=== PATIENT | male | born 1955 | race Caucasian/White ===

== ENCOUNTER 2020-03-29 09:58 | Emergency (ER) | payer MEDICARE, MEDICAID, SELFPAY ==
--- NOTE | 2020-03-29 10:06 | ED.RECABL ---
HPI - Recheck/Abnormal Lab/Rx General Chief Complaint: Recheck/Abnormal Lab/Rx Stated Complaint: sent by pcp for elevated bp Time Seen by Provider: 03/29/20 10:06 History of Present Illness HPI narrative: Sent in by PCP for evaluation of elevated BP. He reports that he has not been able to get his systolic BP below 200. He has a mild headache, denies any additional physical symptoms. He just restarted his metoprolol yesterday. 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 Related Data Home Medications Medication Instructions Recorded Confirmed fluoxetine mg 03/29/20 furosemide 03/29/20 losartan 03/29/20 metoprolol succinate PO 03/29/20 nitroglycerin mg 03/29/20 oxycodone-acetaminophen 03/29/20 simvastatin mg 03/29/20 Allergies Allergy/AdvReac Type Severity Reaction Status Date / Time No Known Allergies Allergy Mild Verified 03/29/20 10:16 Review of Systems Review of Systems: All systems reviewed & are unremarkable except as noted in HPI and below Constitutional: Constitutional: Denies chills, Denies fever(s) and Denies weakness Cardiovascular: Cardiovascular: Denies chest pain Respiratory: Respiratory: Denies cough and Denies dyspnea Gastrointestinal: Gastrointestinal: Denies nausea and Denies vomiting Musculoskeletal: Musculoskeletal: Denies back pain Neurologic: Denies dizziness, Reports headache(s) and Denies weakness [facility] Past Medical History Medical History (Updated 03/29/20 @ 11:45 by Pete Feldman MD) HTN (hypertension) Surgical History Surgical History (Updated 03/29/20 @ 10:56 by Pete Feldman MD) Hx of CABG Exam Const: General: no acute distress and alert Orientation/consciousness: patient oriented x3 HENMT: Head: normal to inspection Resp: Effort & Inspection: normal respiratory effort Auscultation: clear to auscultation bilaterally Cardio: Rate: regular rate Rhythm: regular rhythm Skin: General skin exam: normal color Neuro: General: patient oriented x3, moves all extremities, no focal motor deficits and CN's II-XI intact bilaterally Speech: normal speech Extrem: General: normal to inspection and no edema Course Vital Signs Vital signs: Vital Signs Temperature 36.6 C 03/29/20 10:13 Pulse Rate 57 L 03/29/20 10:13 Respiratory Rate 18 03/29/20 10:13 Blood Pressure 225/95 H 03/29/20 10:13 Pulse Oximetry 100 03/29/20 10:13 Temperature 36.6 C 03/29/20 10:13 Pulse Rate 55 L 03/29/20 11:36 Respiratory Rate 12 03/29/20 11:36 Blood Pressure 156/76 H 03/29/20 11:36 Pulse Oximetry 97 03/29/20 11:36 MDM - Recheck/Abnormal Lab/Rx MDM Narrative Medical decision making narrative: Labs and EKG reassuring. BP improved with hydralazine. Discussed with PCP. Will restart amlodipine and he will follow-up next week. Lab Data Attestation: I reviewed the patient's lab results. Result diagrams: 03/29/20 10:24 03/29/20 10:24 Labs: Lab Results 03/29/20 03/29/20 03/29/20 Range/Units 10:21 10:24 10:24 WBC 6.9 (4.5-10.0) K/mm3 RBC 4.64 (4.6-6.20) M/mm3 Hgb 13.7 L (14.0-18.0) g/dL Hct 41.7 L (42.0-52.0) % MCV 89.9 (80-100) fl MCH 29.5 (26-34) pg MCHC 32.9 (32-36) g/dl RDW 14.2 (11.5-14.5) % Plt Count 193 (150-375) k/mm3 MPV 9.2 (7.4-10.4) fl Immature Gran % (Auto) 0.4 (0-0.5) % Neut % (Auto) 63.1 (45.5-73.1) % Lymph % (Auto) 20.7 (18.3-44.2) % [place] % (Auto) 9.8 H (2.6-8.5) % Eos % (Auto) 5.3 H (0-4.4) % Baso % (Auto) 0.7 (0.2-1.2) % Lymph # (Auto) 1.44 (0.9-3.2) K/mm3 [place] # (Auto) 0.7 H (0.1-0.6) K/mm3 Eos # (Auto) 0.4 H (0-0.3) K/mm3 Baso # (Auto) 0.1 (0.0-0.1) K/mm3 Abs Immat Gran (auto) 0.03 (0.00-0.031) K/mm3 Absolute Neuts (auto) 4.4 (1.3-6.7) K/mm3 Absolute Nucleated RBC 0.0 (0.0-0.012) K/mm3 Nucleated RBC % 0.0 (0.0-0.2) % Sodium 137 (137-145) mmol/L Potassium 4.1 (3.4-5.0) mmo
[2020-03-29 10:13] VITALS: BP 225/95; PULSE 57; RESP 18; TEMP 36.6; O2SAT 100
--- NOTE | 2020-03-29 10:26 | PCRCNOTE ---
ABG NOT DRAWN PER DR. CALERO.
[2020-03-29 10:29] LABS: Glucose Point of Care 115 (65-105)
[2020-03-29 10:31] LABS: Basophils Absolute Auto 0.1 K/mm3 (0.0-0.1); Basophils Percent Auto 0.7 % (0.2-1.2); Eosinophils Absolute Auto 0.4 K/mm3 (0-0.3); Eosinophils Percent Auto 5.3 % (0-4.4); Hematocrit 41.7 % (42.0-52.0); Hemoglobin 13.7 g/dL (14.0-18.0); Immature Granulocyte Absolute 0.03 K/mm3 (0.00-0.031); Immature Granulocyte Percent A 0.4 % (0-0.5); Lymphocytes Absolute Auto 1.44 K/mm3 (0.9-3.2); Lymphocytes Percent Auto 20.7 % (18.3-44.2); Mean Corpuscular HGB Conc 32.9 g/dl (32-36); Mean Corpuscular Hemoglobin 29.5 pg (26-34); Mean Corpuscular Volume 89.9 fl (80-100); Mean Platelet Volume 9.2 fl (7.4-10.4); Monocytes Absolute Auto 0.7 K/mm3 (0.1-0.6); Monocytes Percent Auto 9.8 % (2.6-8.5); Neutrophils Absolute Auto 4.4 K/mm3 (1.3-6.7); Neutrophils Percent Auto 63.1 % (45.5-73.1); Platelet Count Result 193 k/mm3 (150-375); Red Blood Count 4.64 M/mm3 (4.6-6.20); Red Cell Distribution Width 14.2 % (11.5-14.5); White Blood Count 6.9 K/mm3 (4.5-10.0)
[2020-03-29 10:38] VITALS: BP 188/70; PULSE 54; RESP 15; O2SAT 97
[2020-03-29] MEDS: hydrALAZINE HCL 20 MG/ML VIAL 10 MG IV PUSH (10:41)
[2020-03-29 11:01] LABS: Potassium 4.1 mmol/L (3.4-5.0)
[2020-03-29 11:04] LABS: Anion Gap 2 mmol/L (8-16); Blood Urea Nitrogen 12 mg/dL (9-20); Calcium 9.8 mg/dL (8.4-10.2); Carbon Dioxide 26 mmol/L (22-30); Chloride 109 mmol/L (98-107); Estimated CRCL calculation 89 ml/min; Estimated Glomerular Filt Rate > 60; Glucose 109 mg/dL (75-110); Sodium 137 mmol/L (137-145)
[2020-03-29 11:08] VITALS: BP 171/83; PULSE 55; RESP 11; O2SAT 98
--- NOTE | 2020-03-29 11:21 | ECG_ITS ---
Measurements Intervals [place] Rate: 52 P: 54 WV: 203 QRS: 20 QRSD: 103 T: 163 QT: 485 QTc: 452 Interpretive Statements SINUS BRADYCARDIA BORDERLINE AV CONDUCTION DELAY DELAYED PRECORDIAL R/S TRANSITION ST-T WAVE ABNORMALITY IN LAT/HIGH LAT LEADS- CONSIDER ISCHEMIA BASELINE ARTIFACT- V5 ABNORMAL ECG Electronically Signed On 03-29-2020 12:01:16 CDT by Elijah Mae D.O.
[2020-03-29 11:36] VITALS: BP 156/76; PULSE 55; RESP 12; O2SAT 97
== END 2020-03-29 12:27 | disposition home or self-care (01) ==
PROVIDERS: Emergency Provider Emergency Medicine; PCP Internal Medicine
DX: I10 Essential (primary) hypertension (principal); Z95.1 Presence of aortocoronary bypass graft
CPT/HCPCS: 36415; 80048; 82948; 85025; 93005; 96374; 99284; J0360

== ENCOUNTER → 2023-03-18 12:19 | Outpatient (CLI) | payer MEDICARE, MEDICAID, SELFPAY ==
--- NOTE | ~2023-03-18 | MR_ITS ---
MRI of the lumbar spine Clinical History: Radiculopathy Technique: Axial T2-weighted images, and sagittal T1-weighted, T2-weighted, and T2 fat-sat images wer e acquired. Findings: There is no fracture or subluxation of the lumbar spine. Vertebral bodies maintain normal h eight and alignment. No suspicious bone marrow signal reality seen. At L1-L2, there is mild to moderate facet arthropathy with minimal disc bulge. No central canal steno sis or neural foraminal narrowing. At L2-L3, there is minimal disc bulge with moderate to severe facet arthropathy. No central canal lizette nosis or neural foraminal narrowing. L3-L4, there is disc bulge with severe facet arthropathy. No central canal stenosis or neural foramin al narrowing. At L4-L5, there is disc bulge and facet arthropathy. No central canal stenosis. There is mild bilater al neural foraminal narrowing. At L5-S1, there is disc bulge and severe facet arthropathy. No central canal stenosis. There is moder ate to advanced bilateral neural foraminal narrowing. Paravertebral soft tissues are unremarkable. Impression: Moderate degenerative spondylosis, as detailed above. Reviewed, dictated and finalized at location . Impression: Moderate degenerative spondylosis, as detailed above.
--- NOTE | ~2023-03-18 | MR_ITS ---
MRI of the cervical spine Clinical History: Cervicalgia Technique: Axial T2-weighted and gradient images, and sagittal T1-weighted, T2-weighted, and STIR juan ges were acquired. Findings: There is no fracture or subluxation of the cervical spine. Vertebral bodies maintain normal height and alignment. No suspicious bone marrow signal reality seen. At C2-C3, there is mild facet arthropathy. No disc bulge or herniation. No central canal stenosis, co rd compression, or neural foraminal narrowing. At C3-C4, there is small disc bulge. There is facet arthropathy bilaterally. There is left neural for aminal narrowing and possible minimal right neural foraminal narrowing. No central canal stenosis or cord compression. At C4-C5, there is disc osteophyte complex resulting in mild flattening the ventral cord. There is fa cet arthropathy bilaterally, with minimal bilateral neural foraminal narrowing. At C5-C6, there is disc osteophyte complex with minimal flattening the ventral cord. There is facet a rthropathy bilaterally. Neural foramina are preserved. At C6-C7, there is disc osteophyte complex which minimally abuts the ventral cord. There is bilateral facet arthropathy and bilateral neural foraminal narrowing. No abnormal signal seen in the spinal cord itself. Paravertebral soft tissues are unremarkable. Impression: Moderate degenerative spondylosis, as above, worst at C4-C5 and C5-C6. Reviewed, dictated and finalized at [facility]. Impression: Moderate degenerative spondylosis, as above, worst at C4-C5 and C5-C6.
== END ==
PROVIDERS: PCP Nurse Practitioner Family; Visit Provider Nurse Practitioner Family
DX: M47.896 Other spondylosis, lumbar region (principal); M47.892 Other spondylosis, cervical region
CPT/HCPCS: 72141; 72148

== ENCOUNTER 2023-11-02 08:51 | Outpatient (CLI) | payer MEDICARE, MEDICAID, SELFPAY ==
--- NOTE | 2023-11-02 11:00 | NEURO_ITS ---
Impression: # Complains of pain and numbness of feet. Known diabetic with history of back pain as well. # Asymmetrical sensory and motor neuropathy. # Needle/EMG exam without any acute changes but decreased motor unit potentials. # Clinical correlation recommended. Early stages of neuropathy likely. Nerve Conduction Studies Anti Sensory Summary Table Stim Site NR Peak (ms) P-T Amp (?V) Site1 Site2 Delta-P (ms) Dist (cm) Twin (m/s) Left Saphenous Anti Sensory (Ant Med Mall) 14cm 3.8 7.2 14cm Ant Med Mall 3.8 0.0 Right Saphenous Anti Sensory (Ant Med Mall) NO RESPONSE 14cm NR 14cm Ant Med Mall 0.0 Left Sup Fibular Anti Sensory (Ant Lat Mall) 14 cm 3.7 11.4 14 cm Ant Lat Mall 3.7 16.0 43 Right Sup Fibular Anti Sensory (Ant Lat Mall) NO RESPONSE 14 cm NR 14 cm Ant Lat Mall 16.0 Left Sural Anti Sensory (Lat Mall) NO RESPONSE Calf NR Calf Lat Mall 16.0 Right Sural Anti Sensory (Lat Mall) NO RESPONSE Calf NR Calf Lat Mall 16.0 Motor Summary Table Stim Site NR Onset (ms) O-P Amp (mV) Site1 Site2 Delta-0 (ms) Dist (cm) Twin (m/s) Left Peroneal Motor (Vastus Med) Ankle 3.8 2.4 Popit Ankle 7.8 36.0 46 Popit 11.6 2.0 Right Peroneal Motor (Vastus Med) Ankle 4.0 2.1 Popit Ankle 8.3 37.0 45 Popit 12.3 1.6 Left Tibial Motor (Abd Martinez Brev) Ankle 4.0 1.4 Knee Ankle 8.6 38.0 44 Knee 12.6 1.1 Right Tibial Motor (Abd Martinez Brev) Ankle 4.2 1.1 Knee Ankle 9.0 37.0 41 Knee 13.2 1.4 F Wave Studies NR F-Lat (ms) L-R F-Lat (ms) Left Peroneal (Mrkrs) (EDB) 54.21 1.23 Right Peroneal (Mrkrs) (EDB) 55.44 1.23 Left Tibial (Mrkrs) (Abd Hallucis) 55.14 0.29 Right Tibial (Mrkrs) (Abd Hallucis) 54.85 0.29 EMG Side Muscle Nerve Root Ins Act Fibs Amp Dur Recrt Comment Right AntTibialis Dp Br Fibular L4-5 Nml Nml Nml Nml +1 Right Gastroc Tibial S1-2 Nml Nml Nml Nml +1 Right Fibularis Long Sup Br Fibular L5-S1 Nml Nml Nml Nml +1 Right Flex Dig Long Tibial L5-S2 Nml Nml Nml Nml +1 Right Ext Dig Brev Dp Br Fibular L5, S1 Nml Nml Nml Nml +1 Left AntTibialis Dp Br Fibular L4-5 Nml Nml Nml Nml +1 Left Gastroc Tibial S1-2 Nml Nml Nml Nml +1 Left Fibularis Long Sup Br Fibular L5-S1 Nml Nml Nml Nml +1 Left Flex Dig Long Tibial L5-S2 Nml Nml Nml Nml +1 Left Ext Dig Brev Dp Br Fibular L5, S1 Nml Nml Nml Nml +1 Right QuadratusFem QuadFemoris L4-5, S1 Nml Nml Nml Nml +1 Left QuadratusFem QuadFemoris L4-5, S1 Nml Nml Nml Nml +1 MTDD
== END 2023-11-02 08:52 | disposition home or self-care (01) ==
LOC: ANHNEURO 08:54
PROVIDERS: PCP Internal Medicine; Visit Provider Podiatrist Foot & Ankle Surgery
DX: M79.2 Neuralgia and neuritis, unspecified (principal)
CPT/HCPCS: 95886; 95911